=== PATIENT | male | born 1960 | race Caucasian/White ===

== ENCOUNTER → 2019-05-29 07:58 | Outpatient (BNVA) | payer OTHER, SELFPAY | PROVIDERS: Family Provider Family Medicine; PCP Family Medicine; Visit Provider Anesthesiology | DX: M54.9 Dorsalgia, unspecified (principal); Z79.891 Long term (current) use of opiate analgesic | CPT/HCPCS: 99213; 99214 ==

== ENCOUNTER → 2019-07-24 08:32 | Outpatient (BNVA) | payer OTHER, SELFPAY | PROVIDERS: Family Provider Family Medicine; PCP Family Medicine; Visit Provider Anesthesiology | DX: M54.41 Lumbago with sciatica, right side (principal); M54.42 Lumbago with sciatica, left side; M47.26 Other spondylosis with radiculopathy, lumbar region; M48.061 Spinal stenosis, lumbar region without neurogenic claudication; S32.000A Wedge compression fracture of unspecified lumbar vertebra, initial encounter for closed fracture; X58.XXXA Exposure to other specified factors, initial encounter; M19.90 Unspecified osteoarthritis, unspecified site; Z79.891 Long term (current) use of opiate analgesic | CPT/HCPCS: 99214 ==

== ENCOUNTER → 2019-12-11 08:25 | Outpatient (BNVA) | payer OTHER, SELFPAY | PROVIDERS: Family Provider Family Medicine; PCP Family Medicine; Visit Provider Anesthesiology | DX: M54.42 Lumbago with sciatica, left side (principal); M54.41 Lumbago with sciatica, right side; M48.061 Spinal stenosis, lumbar region without neurogenic claudication; M47.26 Other spondylosis with radiculopathy, lumbar region; S32.000A Wedge compression fracture of unspecified lumbar vertebra, initial encounter for closed fracture; X58.XXXA Exposure to other specified factors, initial encounter; M19.90 Unspecified osteoarthritis, unspecified site; Z79.891 Long term (current) use of opiate analgesic | CPT/HCPCS: 99214 ==

== ENCOUNTER → 2020-02-08 14:39 | Outpatient (BNVA) | payer OTHER, SELFPAY | PROVIDERS: Family Provider Family Medicine; PCP Family Medicine; Referring Provider Internal Medicine; Visit Provider Podiatrist Foot & Ankle Surgery | DX: M79.672 Pain in left foot (principal); M20.42 Other hammer toe(s) (acquired), left foot | CPT/HCPCS: 73630 ==

== ENCOUNTER → 2020-02-11 09:14 | Outpatient (BNVA) | payer OTHER, SELFPAY | PROVIDERS: Family Provider Family Medicine; PCP Family Medicine; Visit Provider Anesthesiology | DX: M48.061 Spinal stenosis, lumbar region without neurogenic claudication (principal); M54.42 Lumbago with sciatica, left side; M54.41 Lumbago with sciatica, right side; M47.26 Other spondylosis with radiculopathy, lumbar region; S32.000A Wedge compression fracture of unspecified lumbar vertebra, initial encounter for closed fracture; X58.XXXA Exposure to other specified factors, initial encounter; Z79.891 Long term (current) use of opiate analgesic | CPT/HCPCS: 99212; 99214 ==

== ENCOUNTER → 2020-03-11 09:55 | Outpatient (BNVA) | payer OTHER, SELFPAY | PROVIDERS: Family Provider Family Medicine; PCP Family Medicine; Visit Provider Anesthesiology | DX: M54.42 Lumbago with sciatica, left side (principal); M54.41 Lumbago with sciatica, right side; M48.061 Spinal stenosis, lumbar region without neurogenic claudication; M47.26 Other spondylosis with radiculopathy, lumbar region; S32.000A Wedge compression fracture of unspecified lumbar vertebra, initial encounter for closed fracture; X58.XXXA Exposure to other specified factors, initial encounter; Z79.891 Long term (current) use of opiate analgesic | CPT/HCPCS: 99212; 99214 ==

== ENCOUNTER → 2020-04-04 16:35 | Outpatient (BNVA) | payer OTHER, SELFPAY | PROVIDERS: PCP Family Medicine; Visit Provider Podiatrist Foot & Ankle Surgery | DX: Z01.818 Encounter for other preprocedural examination (principal); Z11.59 Encounter for screening for other viral diseases | CPT/HCPCS: 87635 ==

== ENCOUNTER 2020-04-08 05:39 | Day surgery (SDC) | payer OTHER, SELFPAY ==
[2020-04-07 07:43] VITALS: BMI 28.1
[2020-04-08 06:06] VITALS: BP 139/103; PULSE 71; RESP 16; TEMP 37.1; O2SAT 96
[2020-04-08] MEDS: sodium chloride 0.9% 1,000 ML 30 ML IV (06:13)
--- NOTE | 2020-04-08 06:40 | PM.OPSURHP ---
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 He is here for surgical consultation. Review of Systems General: Reports: 10 or more systems reviewed and unremarkable except in HPI and below Const: Denies: fever(s) or chills Eyes: Denies: change in vision Card: Denies: chest pain or palpitations Resp: Denies: dyspnea or productive cough GI: Denies: abdominal pain, nausea or vomiting : Denies: flank pain Musc: Reports: extremity pain, joint pain, joint stiffness, limited range of motion and deformity Skin/Breast: Reports: skin tenderness; Denies: rash Neuro: Reports: difficulty walking; Denies: numbness in extremities, sensory changes or frequent falls Psych: Denies: suicidal ideation Manuel/Lymph: Denies: easy bruising Medications/Allergies Home Medications Medication Instructions Recorded Confirmed Last Taken Type amlodipine 10 mg tablet 10 mg PO QDAY 05/29/19 04/08/20 04/07/20 History amlodipine 5 mg tablet 5 mg PO QDAY 05/29/19 04/08/20 04/08/20 History cinnamon bark 500 mg capsule 500 mg PO QDAY 05/29/19 04/08/20 04/07/20 History fluticasone propionate 50 2 spray INTRANASAL QDAY 05/29/19 04/08/20 04/07/20 History mcg/actuation nasal spray,suspension garlic 1 mg capsule 1 mg PO QDAY 05/29/19 04/08/20 04/07/20 History ibuprofen 800 mg tablet 800 mg PO Q6H 05/29/19 04/08/20 04/07/20 History vthbztcz-bsa-lzquo acid 300 1 tab PO QDAY 05/29/19 04/08/20 04/07/20 History mcg-lycopene 600 mcg-lutein 300 mcg tablet tamsulosin 0.4 mg capsule 0.4 mg PO QDAY 05/29/19 04/08/20 04/07/20 History cyclobenzaprine 10 mg tablet 10 mg PO TID 07/24/19 04/07/20 Unknown History pregabalin 50 mg capsule 50 mg PO TID 30 Days #90 cap 07/24/19 04/08/20 04/07/20 Rx oxycodone-acetaminophen 5 mg-325 1 tab PO TID PRN 30 Days #90 tab 03/11/20 04/08/20 04/07/20 Rx mg tablet Allergies Allergy/AdvReac Type Severity Reaction Status Date / Time chemicals Allergy ADR/ALGY-Fl [facility]11[facility]20 [facility]: Medical History (Updated 04/08/20 @ 06:41 by Jake Amaro DPM) Bilateral low back pain with bilateral sciatica Chronic osteoarthritis Closed compression fracture of lumbosacral spine Encounter for long-term opiate analgesic use Other spondylosis with radiculopathy, lumbar region Spinal stenosis, lumbar region without neurogenic claudication Surgical History History of arthroplasty of left ankle Family History Sister Cancer Grandmother Diabetes Father CAD (coronary artery disease) Brother CAD (coronary artery disease) Social History Smoking and tobacco status: former smoker Alcohol intake: never History of recent travel: No Dietary Habits: Caffeine: Yes Caffeine intake frequency: carbonated beverages and tea Vital Signs Vitals Signs: Last Vital Signs Temp 98.7 F 04/08/20 06:06 Pulse 71 04/08/20 06:06 Resp 16 04/08/20 06:06 BP 139/103 04/08/20 06:06 Pulse Ox 96 04/08/20 06:06 Weight: Weight last 48 hrs Weight 180 lb Physical Exam Narrative: EXAM NARRATIVE: GENERAL: Patient is alert and oriented ?3 and in no acute distress. The following is a focused bilateral lower extremity exam. VASCULAR: Dorsalis pedis and posterior tibial arteries palpable +2. Capillary refill time less than 3 seconds to the distal hallux bilaterally. Calf is supple and nontender proximally and distally. No pedal edema appreciated. Pedal hair growth present. NEUROLOGICAL: Epicritic and protopathic sensations grossly intact to the lower extremities. +2 Achilles tendon reflex noted bilaterally. Negative Tinel sign upon percussion of lower extremity nerves. DERMATOLOGICAL: Hyperkeratotic lesion at the dorsal aspect of the left third toe at the PIPJ. MUSCULOSKELETAL: Point tenderness at the left third toe at the proximal interphalangeal joint. Patient has a nonreducible rigid hammertoe deformity of the left third toe with sagittal plane dominance. Reducible hammertoe of the fourth and fifth left foot these are nonpainful. Muscle strength 5 out of 5 in all 3 cardinal planes to the bilateral foot and ankle. Resp: COMMON NORMALS: normal respiratory effort, No retractions, No use of accessory muscles and clear to auscultation bilaterally EFFORT & INSPECTION: Yes able to speak in complete sentences AUSCULTATION: clear to auscultation bilaterally Cardio: COMMON NORMALS: regular rate, regular rhythm and Peripheral pulses 2+ throughout RATE: regular rate RHYTHM: regular rhythm PERIPHERAL PULSES: Peripheral pulses 2+ throughout A&P Assessment and plan (1) Left foot pain: Status: Acute (2) Hammertoe of left foot: Status: Acute Patient examined and evaluated, findings and treatment options discussed with patient at length. Reviewed x-ray findings negative for acute fracture dislocation. He does have hammertoe deformities of the left foot toes 3, 4 and 5. [place] sign appreciated at the third toe, left. Patient has exhausted conservative treatments consisting of supportive shoes with high toe box. Gel and foam pads at the hammertoe deformity as well as Band-Aids. States that his hammertoe continues to rub and cause pain and he would like to discuss treatment options. I discussed hammertoe correction with arthrodesis and implant at the proximal interphalangeal joint left third toe with possible tendon transfer. Risks include pain, bleeding, numbness, infection, implant failure, failure to correct deformity, overcorrection of deformity, flail toe, damage to adjacent soft tissue structures, swelling, bruising, painful scar. Need for further surgical intervention. Patient is agreeable wishes to proceed. Patient scheduled for surgery outpatient 04/08/2020 will follow-up 1 week postoperatively for nursing visit and dressing change. Planning on PIPJ arthrodesis with implant and TenoTac left third toe. Left third hammertoe correction, MAC anesthesia duration of procedure 30 minutes. Coding Level of Care Code Acute Lost Charge Card Clerk for [facility] Diagnoses Left foot pain M79.672 Hammertoe of left foot M20.42
--- NOTE | 2020-04-08 06:42 | P.HPUD_ITS ---
Surgery/Procedure H&P Update DATE OF PROCEDURE: April 08, 2020 DATE H&P PERFORMED: 04/08/20 H&P UPDATE INFORMATION: I have reviewed H&P completed within last 30 days, I have examined patient prior to procedure, No changes to prior documentation and H&P is in [facility] EMR on date indicated PREOP DIAGNOSIS: Left third hammertoe PLANNED PROCEDURE: Operation Date: 04/08/20 07:00 Proposed Procedures p Left third Hammertoe Correction 31511 M20.42(Left) - Jake Amaro DPM
--- NOTE | 2020-04-08 06:43 | P.OP_ITS ---
Operative Report Date of procedure: April 08, 2020 Pre-op Diagnosis: Left third hammertoe Post-op diagnosis: same Procedure Done: Left third Hammertoe Correction [id number] Implants: [place] 28 Hemmert tube, 4-0 Vicryl, 4-0 nylon Pathology: none sent Surgeon: Jake briseno D.P.M. Manager Philosophy: Sandhya Anesthesia: MAC Estimated blood loss: Less than 5 mL Tourniquet time: see intraoperative documentation IV fluids: None Urine output: None Complications: None Findings: Arthrosis at the third hammertoe deformity at the level of the PIPJ sagittal plane dominance. 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 Patient initially requested amputation of the toe states that he does not want it anym ore due to it being the main source of pain. I advised a hammertoe correction and straightening of the toe is a viable option and he wishes to proceed. Risks include pain, bleeding, numbness, infection, failure to correct deformity, overcorrection of deformity, failed implant, swelling, bruising, need for further surgical intervention. Patient is agreeable and wishes to proceed. Informed consent signed, initialed patient's left foot preoperatively and answered all questions to patient's satisfaction. No guarantees written, expressed or implied. Procedure: Under mild sedation the patient was brought to the operating room and placed on the operating table in supine position. A timeout was performed. Anesthesia was then administered by the anesthesia service. Local anesthesia was injected by myself consisting of 20 cc of 0.5% Marcaine plain and a left third ray block fashion. Well-padded pneumatic tourniquet applied to the left ankle. Left lower extremity was then scrubbed, prepped and draped utilizing normal aseptic technique. Left foot was examined a weighted with an Esmarch bandage and a tourniquet was inflated to 250 mmHg. Attention was directed to the dorsum of the left third toe where 2 semielliptical converging incisions were carried out with a #15 blade full- thickness with skin island excised and passed from the operative field. Transverse tenotomy and capsulotomy performed at the left proximal interphalangeal joint the head of the proximal phalanx and base of the intermediate phalanx were freed from their soft tissue and capsular attachments and resected down to healthy bleeding bone. Next utilizing monument stonecutter recommendation a hammer tube per [place] 28 was inserted approximately and distally with compression at the arthrodesis site at the proximal interphalangeal joint of the left second toe noted to be excellent and in great apposition and in a rectus position this was confirmed with intraoperative fluoroscopy. Incision was irrigated with copious amounts of sterile saline solution. Extensor tendon was reapproximated utilizing 4-0 Vicryl and skin reapproximated utilizing 4-0 nylon. Incision was dressed with Adaptic, sterile 4 x 4, Kerlix and Christiano wrap. Postop shoe was applied. Tourniquet was deflated and a prompt hyperemic response was noted to the distal digits of the left foot. Patient tolerated the procedure well and was transferred to the PACU with vital signs stable and vascular status intact. Following a period of postoperative monitoring he will be discharged home.
--- NOTE | 2020-04-08 06:49 | ANES.PREANE2 ---
Pre-Anesthetic Assessment Pre-Anesthetic Assessment: Height/Weight: Height 1.7 m Weight 81.647 kg Temp Pulse Resp BP Pulse Ox 98.7 F 71 16 139/103 96 04/08/20 06:06 04/08/20 06:06 04/08/20 06:06 04/08/20 06:06 04/08/20 06:06 Preop Diagnosis: Left third hammertoe Proposed Procedure: Operation Date: 04/08/20 07:00 Proposed Procedures p Left third Hammertoe Correction 67142 M20.42(Left) - Jake Amaro DPM Was Beta Tom taken within 24 hours: N/A Last intake: Intake Last Liquid Date 04/08/20 Last Liquid Time 00:00 Last Solid Date 04/07/20 Last Solid Time 19:00 Social: Social History: Tobacco and No alcohol Exam: Pre-Anes Outpt Exam: alert, oriented x 3 and regular rate & rhythm Additional Exam Findings (including area of procedure): BBS decreased, rhonchi Airway: Submandibular: WNL Cervical ROM: WNL MP: 2 Dentition: False Additional comments: Gonzalez Pulmonary: Pulmonary: COPD CV/HEM: CV/HEM: HTN : : None reported Hepatic: Hepatic: None reported GI: GI: None reported Musc/skel: Musc/skel: Lower Back Pain Comments: Chronic pain/opioid Neuropsych: Neuropsych: None reported Anesthetic Plan: ASA status: 3 Anesthesia: MAC Risk of > 500 ml blood loss (7ml/kg in children): No Meds/Allergies Current Medications: Current Medications Generic Name Dose Route Start Last Admin Trade Name Freq PRN Reason Stop Dose Admin Sodium Chloride 1,000 mls @ 30 ml s/hr 04/08/20 06:00 04/08/20 06:13 Sodium Chloride 0.9% IV 04/09/20 05:59 30 mls/hr .Q24H RAVIN Administration PFSH Anesthesia PFSH: Medical History (Updated 04/08/20 @ 06:41 by Jake Amaro DPM) Bilateral low back pain with bilateral sciatica Chronic osteoarthritis Closed compression fracture of lumbosacral spine Encounter for long-term opiate analgesic use Other spondylosis with radiculopathy, lumbar region Spinal stenosis, lumbar region without neurogenic claudication Surgical History History of arthroplasty of left ankle Family History Sister Cancer Grandmother Diabetes Father CAD (coronary artery disease) Brother CAD (coronary artery disease) Social History Smoking and tobacco status: former smoker Alcohol intake: never History of recent travel: No Data Anesthesia Cardiac Studies: No Data to Display
--- NOTE | 2020-04-08 07:44 | XR_ITS ---
WS: [id number] Left foot, 3 views, 04/08/2020 Clinical Data: post op Comparison: Left foot, 02/08/2020. Findings: No fractures or dislocations are seen. No bone destruction or erosion is noted. The patient has had a small artificial joint inserted into the left third toe PIP joint. There are sutures at the medial a spect of the foot at the level of the medial malleolus unchanged. XR/XR foot LT min 3V* [id number] Impression: Small artificial joint left third toe PIP joint
--- NOTE | 2020-04-08 07:45 | P.OP_ITS ---
Operative Report Date of procedure: April 08, 2020 Pre-op Diagnosis: Left third hammertoe Post-op Findings: None Procedure Done: Left third hammertoe correction with implant CPT code 82741 Implants: [place] 28 hammer tube 2.7 mm, 4-0 Vicryl, 4-0 nylon Specimens removed/disposition: None Pathology: none sent Surgeon: Jake Amaro D.P.M. Tool And Die Maker/Designer: Camilla Anesthesia: MAC Estimated blood loss: Less than 5 mL Tourniquet time: 23 minutes IV fluids: None Urine output: None Complications: None Findings: None Condition: stable Disposition: PACU Brief History: Mr. Jannet Gomes is a pleasant 59-year-old male who has had persistent pain at his left third toe. He does have multiple hammertoe deformities however his left third toe is most painful he is unable to get relief utilizing spacers and extra padding as well as accommodative shoes. This affects his ability to care everyday activities as he is increased pain with increased activity. States that he would like to be able to shoot his toe off most days with a gun. He is requesting amputation of the toe due to pain versus straightening the toe. I advised hammertoe correction with implant to perform corrective straightening he is agreeable to this. Risks include pain, bleeding, numbness, infection, failure to correct deformity, overcorrection of deformity, painful scar, painful implant, damage to adjacent soft tissue structures, need for further surgical intervention. Patient is agreeable wishes to proceed. He was met with preoperatively informed consent signed answered all questions and marked with initials left foot no guarantees written, expressed or implied. Procedure: Under mild sedation the patient was brought to the operating room and placed on the operating table in supine position. A timeout was performed. Anesthesia was administered by the anesthesia service. Well-padded pneumatic tourniquet applied to the left ankle. Local anesthesia was injected by myself consisting of 20 cc of 0.5% Marcaine plain and a left third ray block fashion. Left lower extremity was then scrubbed, prepped and draped utilizing normal aseptic technique. Left foot was examined a weighted with an Esmarch bandage and the tourniquet was inflated to 250 mmHg. Attention was then directed to the dorsum of the left third toe where a nonreducible hammertoe deformity with sagittal plane dominance was appreciated had a hyperkeratosis at the dorsum of the proximal interphalangeal joint. Utilizing 2 semielliptical incisions skin bridge was excised and passed from operative field. Transverse capsulotomy and tenotomy performed of the extensor tendons at the level of the proximal interphalangeal joint. Head of the proximal phalanx and base of the intermediate phalanx denuded of articular surface followed by arthroplasty/fusion of the proximal interphalangeal joint of the third digit with excellent bony apposition and bony contact utilizing a [place] 28 hammer tube this was a 0 degree tube 2.7 mm. Excellent bony apposition and compression noted. Incision site was irrigated with saline solution. Position confirmed with intraoperative fluoroscopy noted to be improved. Extensor tendon repaired utilizing 4-0 Vicryl and skin closed with 4-0 nylon. Subcutaneous infiltration of Exparel total of 10 mL performed per environmental sampler recommendation on technique. Incision was dressed with Adaptic, sterile 4 x 4, Kerlix and Christiano followed by postop shoe. Tourniquet was deflated and a prompt hyperemic response was noted to the distal digits of the left foot. Patient tolerated the procedure well and was transferred to the PACU with vital signs stable and vascular status intact. Following a period of postoperative monitoring he will be discharged home he is to have limited weightbearing is to elevate his left foot above the hip at all times while at rest. Keep his postoperative dressing clean, dry and intact until follow-up visit scheduled 04/15/2020 at 8 AM. He was provided my cell phone numbers to contact me with any postoperative questions or concerns. Patient is currently under the care of pain management Dr. Dominick Hoover he is being provided Percocet 5/325 mg 3 times daily and typically gets a 30-day supply. I am recommending holding his current regimen for pain management and an increase provided by myself of Percocet 7.5/325 mg to be taken every 6 for the next 14 days at which time he will return back to his baseline of pain management regimen previously prescribed. I informed the patient to contact pain management and inform them of his surgery today and need for additional postoperative pain management.
[2020-04-08 07:47] VITALS: BP 120/80; PULSE 73; RESP 16; TEMP 36.4; O2SAT 95
[2020-04-08 08:02] VITALS: BP 118/74; PULSE 66; RESP 16; TEMP 36.6; O2SAT 96
--- NOTE | 2020-04-08 08:07 | ANE.PACU2 ---
Inpatient post-anesthesia follow up: Airway intact: Yes Vital signs: Temperature 98 F Pulse Rate 66 Respiratory Rate 16 Blood Pressure 118/74 Pulse Oximetry 96 Oxygen Delivery Me thod Room Air Oxygen Flow Rate Fraction of Inspir ed Oxygen Hydration adequate: Yes Nausea and vomiting: No Pain level: 1 Mental status: Baseline
== END 2020-04-08 08:30 | disposition home or self-care (01) ==
PROVIDERS: PCP Family Medicine; Visit Provider Podiatrist Foot & Ankle Surgery
PROC: (CPT 28285; principal; 2020-04-08 07:00)
DX: M20.42 Other hammer toe(s) (acquired), left foot (principal); J44.9 Chronic obstructive pulmonary disease, unspecified; I10 Essential (primary) hypertension; M19.90 Unspecified osteoarthritis, unspecified site; Z87.891 Personal history of nicotine dependence; Z82.49 Family history of ischemic heart disease and other diseases of the circulatory system
CPT/HCPCS: 28285; 12345; 73630; 76000; C1713; C9290; J0690; J2250; J2704; J3010; J3490; J7030

== ENCOUNTER → 2020-04-21 14:58 | Outpatient (BNVA) | payer OTHER, SELFPAY | PROVIDERS: PCP Internal Medicine; Visit Provider Podiatrist Foot & Ankle Surgery | DX: Z98.890 Other specified postprocedural states (principal) | CPT/HCPCS: 73630 ==

== ENCOUNTER → 2020-05-10 14:41 | Outpatient (BNVA) | payer OTHER, SELFPAY | PROVIDERS: PCP Internal Medicine; Visit Provider Anesthesiology | DX: M48.061 Spinal stenosis, lumbar region without neurogenic claudication (principal); M47.26 Other spondylosis with radiculopathy, lumbar region; M54.42 Lumbago with sciatica, left side; M54.41 Lumbago with sciatica, right side; Z79.891 Long term (current) use of opiate analgesic | CPT/HCPCS: 99213 ==

== ENCOUNTER 2020-05-10 16:52 | Outpatient (CLI) | payer OTHER, SELFPAY ==
--- NOTE | 2020-05-10 17:06 | XR_ITS ---
WS: [id number] Left foot, 3 views, 05/10/2020 Clinical Data: hammertoe Comparison: Left foot, 04/21/2020. Findings: The correction of the hammertoe deformity of the left third DIP joint remains unchanged.There are sut ures adjacent to the medial malleolus. XR/XR foot LT min 3V* [id number] Impression: Correction of left third toe DIP joint deformity.
== END 2020-05-10 16:53 | disposition home or self-care (01) ==
PROVIDERS: PCP Internal Medicine; Visit Provider Podiatrist Foot & Ankle Surgery
DX: M20.42 Other hammer toe(s) (acquired), left foot (principal); M79.672 Pain in left foot
CPT/HCPCS: 73630

== ENCOUNTER → 2020-07-08 08:31 | Outpatient (BNVA) | payer OTHER, SELFPAY | PROVIDERS: PCP Internal Medicine; Visit Provider Anesthesiology | DX: M48.061 Spinal stenosis, lumbar region without neurogenic claudication (principal); M54.42 Lumbago with sciatica, left side; M54.41 Lumbago with sciatica, right side; M47.26 Other spondylosis with radiculopathy, lumbar region; Z79.891 Long term (current) use of opiate analgesic | CPT/HCPCS: 99213 ==

== ENCOUNTER → 2020-09-02 07:54 | Outpatient (BNVA) | payer OTHER, SELFPAY | PROVIDERS: PCP Internal Medicine; Visit Provider Anesthesiology | DX: M54.42 Lumbago with sciatica, left side (principal); M54.41 Lumbago with sciatica, right side; M48.061 Spinal stenosis, lumbar region without neurogenic claudication; M47.26 Other spondylosis with radiculopathy, lumbar region; S32.000A Wedge compression fracture of unspecified lumbar vertebra, initial encounter for closed fracture; X58.XXXA Exposure to other specified factors, initial encounter; Z79.891 Long term (current) use of opiate analgesic | CPT/HCPCS: 99213 ==

== ENCOUNTER → 2020-11-04 07:57 | Outpatient (BNVA) | payer OTHER, SELFPAY | PROVIDERS: PCP Internal Medicine; Visit Provider Anesthesiology | DX: M48.061 Spinal stenosis, lumbar region without neurogenic claudication (principal); M47.26 Other spondylosis with radiculopathy, lumbar region; M54.42 Lumbago with sciatica, left side; M54.41 Lumbago with sciatica, right side; Z79.891 Long term (current) use of opiate analgesic; Z87.891 Personal history of nicotine dependence | CPT/HCPCS: 99213 ==

== ENCOUNTER → 2020-12-30 08:29 | Outpatient (BNVA) | payer OTHER, SELFPAY | PROVIDERS: PCP Internal Medicine; Visit Provider Anesthesiology | DX: M54.42 Lumbago with sciatica, left side (principal); M54.41 Lumbago with sciatica, right side; M48.061 Spinal stenosis, lumbar region without neurogenic claudication; M47.26 Other spondylosis with radiculopathy, lumbar region; Z79.891 Long term (current) use of opiate analgesic | CPT/HCPCS: 99213 ==

== ENCOUNTER → 2021-03-03 07:49 | Outpatient (BNVA) | payer OTHER, SELFPAY | PROVIDERS: PCP Internal Medicine; Visit Provider Anesthesiology | DX: M48.061 Spinal stenosis, lumbar region without neurogenic claudication (principal); M47.26 Other spondylosis with radiculopathy, lumbar region; M54.42 Lumbago with sciatica, left side; M54.41 Lumbago with sciatica, right side; S32.000A Wedge compression fracture of unspecified lumbar vertebra, initial encounter for closed fracture; X58.XXXA Exposure to other specified factors, initial encounter; Z79.891 Long term (current) use of opiate analgesic | CPT/HCPCS: 99213 ==

== ENCOUNTER → 2021-03-21 09:35 | Outpatient (BNVA) | payer OTHER, SELFPAY | PROVIDERS: PCP Internal Medicine; Referring Provider Anesthesiology; Visit Provider Orthopaedic Surgery | DX: M54.42 Lumbago with sciatica, left side (principal); M54.41 Lumbago with sciatica, right side; M47.899 Other spondylosis, site unspecified | CPT/HCPCS: 72110 ==

== ENCOUNTER 2021-04-26 15:00 | Outpatient (CLI) | payer OTHER, SELFPAY ==
--- NOTE | 2021-04-26 15:15 | MR_ITS ---
WS: [id number] MRI LUMBAR SPINE NONCONTRAST HISTORY: M47.26 - Other spondylosis with radiculopathy, chronic low back pain, RIGHT hip and groin pa in. COMPARISON: Radiographs 03/21/2021 TECHNIQUE: Sagittal and axial multisequence imaging is submitted. On the sagittal survey of the entire spine a 50% compression fracture is noted at T4 and 10% compress ion fracture at T5. Straightening and LEFT curvature of the lumbar spine. Compression fracture by 20% at L2. There is a s mall amount of reactive edema along the adjacent endplates of L2 and L3. L2 retrolisthesis by 8 mm. L 5 anterolisthesis by 7.6 mm. The S1 vertebral body is partially lumbarized and there is also mild ant erior wedging of the S1 vertebral body. Mild disc space narrowing and desiccation throughout the lumbar spine. Conus terminates normally at L1-2 disc level. L1-L2: Mild diffuse disc bulging. Small disc osteophyte complex in the LEFT neural foramen. Does not appear to be contacting or displacing the nerve roots. L2-L3: Retrolisthesis of L2 causing mild deformity and effacement of the ventral CSF. There is mild a nnular disc bulging and osteophytic ridging. Very minimal ligamentum flavum hypertrophy and facet lyndsey nt arthritis. The retrolisthesis and facet joint arthritis encroaches into the subarticular recesses bilaterally with contact on the traversing L3 nerve roots. Moderate bilateral subarticular recess fahad nosis and mild foraminal stenosis. More significant stenosis and encroachment extending into the RIGH T subarticular recess and foramen by osteophyte and disc protrusion. L3-L4: Mild annular disc bulging and osteophytic ridging. Small amount of fluid in the facet joints a nd ligamentum flavum hypertrophy. There is mild narrowing of the subarticular recesses and foramen. M ild encroachment upon the L3 and L4 nerve roots bilaterally. L4-L5: Mild annular disc bulging and ligamentum flavum and facet arthritis. Mild bilateral foraminal encroachment. L5-S1: Anterolisthesis of L5 with unroofing of the disc with mild ligamentum flavum and moderate face t joint arthritis. Facet osteophytes encroach towards the subarticular recesses. There is mild encroa chment upon the ventral thecal sac and S1 nerve roots. Mild central and bilateral subarticular recess encroachment. Very slight contact on the exiting nerve roots, LEFT greater than RIGHT. Paravertebral soft tissues are negative. MR/MR lumbar spine wo con* [id number] IMPRESSION: 1. Remote L2 compression fracture, 20%. 2. Retrolisthesis of L2 by 8 mm and anterolisthesis of L5 by 7.6 mm. 3. No acute lumbar spine fractures. 4. Small disc osteophyte contacts LEFT neural foramen of L1-2 without nerve ro ot contact. 5. Moderate bilateral subarticular recess stenosis at L2-3 with disc and osteo phyte and facet arthritis contacting the traversing L3 nerve roots. Mild bilate ral foraminal stenosis. More significant encroachment upon the RIGHT L2 and L3 nerve roots due to osteophytes and RIGHT foraminal disc protrusion. 6. Mild subarticular recess and foraminal stenosis at L3-4 with mild encroachm ent upon the nerve roots. 7. Mild bilateral foraminal stenosis at L4-5. 8. Facet joint arthritis encroaching into the subarticular recesses resulting in mild central and bilateral subarticular recess encroachment at L5-S1 with co ntact on the L5 and S1 nerve roots. 9. Remote T4 and T5 compression fractures.
== END 2021-04-26 15:01 | disposition home or self-care (01) ==
LOC: RADSHAW 15:09
PROVIDERS: PCP Internal Medicine; Visit Provider Orthopaedic Surgery
DX: M47.26 Other spondylosis with radiculopathy, lumbar region (principal); M48.061 Spinal stenosis, lumbar region without neurogenic claudication; S32.029A Unspecified fracture of second lumbar vertebra, initial encounter for closed fracture; M25.78 Osteophyte, vertebrae; S22.049A Unspecified fracture of fourth thoracic vertebra, initial encounter for closed fracture; S22.059A Unspecified fracture of T5-T6 vertebra, initial encounter for closed fracture; X58.XXXA Exposure to other specified factors, initial encounter
CPT/HCPCS: 72148

== ENCOUNTER 2022-01-15 13:45 | Inpatient (IN) | payer OTHER, SELFPAY ==
[2022-01-11 08:51] VITALS: BMI 29.0
--- NOTE | 2022-01-11 09:05 | P.ANESASSM_ITS ---
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 After further discussion of risk of declining blood, patient states he will accept blood products if deemed medically necessary. Medications/Allergies Home Medications Medication Instructions Recorded Confirmed Last Taken Type amlodipine 5 mg tablet 5 mg PO QDAY 05/29/19 01/11/22 04/08/20 History cinnamon bark 500 mg capsule 500 mg PO QDAY 05/29/19 01/11/22 04/07/20 History fluticasone propionate 50 2 spray intranasal QDAY 05/29/19 01/11/22 04/07/20 History mcg/actuation nasal spray,suspension ibuprofen 800 mg tablet 800 mg PO Q6H 05/29/19 01/11/22 04/07/20 History srghkiql-bxc-ffnkh acid 300 1 tab PO QDAY 05/29/19 01/11/22 04/07/20 History mcg-lycopene 600 mcg-lutein 300 mcg tablet (Centrum Silver Ultra Men's) cyclobenzaprine 10 mg tablet 10 mg PO TID 07/24/19 01/11/22 Unknown History oxycodone-acetaminophen 10 mg-325 1 tab PO QID PRN pain 30 days #120 06/16/21 01/11/22 Unknown Rx mg tablet tabs Barley Green 1 tbsp PO DAILY 01/11/22 01/11/22 Unknown History Relief Factor 4 tab PO DAILY 01/11/22 01/11/22 Unknown History Allergies Allergy/AdvReac Type Severity Reaction Status Date / Time chemicals Allergy ADR/ALGY-Fl Uncoded 09/19/21 09:26 [facility] Anesthesia Medical History (Updated 01/11/22 @ 08:25 by Jenna Cortez) Bilateral low back pain with bilateral sciatica Chronic osteoarthritis Closed compression fracture of lumbosacral spine Encounter for long-term opiate analgesic use Other spondylosis with radiculopathy, lumbar region Spinal stenosis, lumbar region without neurogenic claudication Surgical History (Updated 01/11/22 @ 08:52 by Jenna Cortez) History of arthroplasty of left ankle Family History Sister Cancer Grandmother Diabetes Father CAD (coronary artery disease) Brother CAD (coronary artery disease) Social History Smoking and tobacco status: former smoker Second hand smoke exposure: No Alcohol intake: never History of recent travel: No Data Anesthesia Cardiac Studies: No Data to Display
[2022-01-15] VITALS (25 sets, daily range): BP systolic 88–157; BP diastolic 53–102; PULSE 18–96; RESP 12–75; TEMP 36.2–36.8; O2SAT 92–98; BMI 29.0
--- NOTE | 2022-01-15 | XR_ITS ---
WS: [id number] XR lumbar spine 2-3V* [id number] REASON FOR EXAM: L4 to pelvis instrumented fusion FINDINGS: Pedicle screw placement bilaterally L3-S1. Oblique sacral screws S2. Interbody fusion device at L5-S1. Surgical appliances are in proper position and alignment. XR/XR lumbar spine 2-3V* [id number] IMPRESSION: Postoperative lumbar spine as above.
--- NOTE | 2022-01-15 | SCC_ITS ---
Procedure done: 1. L5/S1 Interbody fusion with posterolateral fusion 2. Instrumentation L3-S1 3. Lumbopelvic instrumentation 4. Cage at L5/S1 5. L4/5 Laminectomy with partial facetectomies 6. L5/S1 Laminectomy with partial facetectomies 7. use of autograft from same incision 8. allograft 9. Bone marrow aspirate from right iliac crest 10. Use of computer navigation /stereotactic for spine 8 seconds of fluoroscopic guidance, for a cumulative dose of 23.7 mGy, was provided to Dr. oDan by the radiology department. C-arm images of the lumbar spine were saved for the patient's permanent record. [facility]
[2022-01-15] MEDS: sodium chloride 0.9% 1,000 ML 30 ML IV (06:16)
--- NOTE | 2022-01-15 06:17 | P.ANESUD_ITS ---
Pre-Anesthetic Update Pre-Anesthetic Assessment: Date of Surgery/Procedure: 01/15/22 Preop Gracie gnosis: Spondylolisthesis L4-5, degenerative disc disease lumbar spine Proposed Procedure: Operation Date: 01/15/22 07:00 Proposed Procedures p PLIF L4/5 L5/S1 [id number]/M43.16(Not Applicable) - Olu Doan, DO Any changes to Pre-Anesthetic Assessment?: No Changes from Pre-Anesthetic Assessment: No Last Intake: Intake Last Liquid Date 01/14/22 Last Liquid Time 00:00 Last Solid Date 01/14/22 Last Solid Time 19:00 Vitals: Temperature 98.2 F 01/15/22 06:05 Temperature Source Temporal Artery S can 01/15/22 06:05 Pulse Rate 73 01/15/22 06:05 Respiratory Rate 18 01/15/22 06:05 Blood Pressure 157/102 01/15/22 06:05 Blood Pressure Shannen n 120 01/15/22 06:05 Pulse Oximetry 94 01/15/22 06:05 Oxygen Delivery Me thod 01/15/22 06:05 Exam: Pre-Anes Outpt Exam: alert, oriented x 3, clear to auscultation bilaterally and regular rate & rhythm Additional Exam Findings (including area of procedure): Discussed blood products with patient. Patient again states he prefers not to have blood products, but will accept if clinically necessary. Type and screen sent. Cardiac Studies: No Data to Display
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
[2022-01-15] MEDS: clindamycin 900 MG/50 ML PREMIX 100 MG IV (07:04)
[2022-01-15] MEDS: heparin, porcine 1,000 unit/mL INJ 10 mL 10000 UNIT IRRIGATION (08:08)
[2022-01-15] MEDS: vancomycin 1,000 MG SDV 1000 MG XX (08:08)
--- NOTE | 2022-01-15 08:16 | SUR.OPER ---
Family Notified Of Patient's Status Via Phone.
--- NOTE | 2022-01-15 11:18 | SUR.PHASEI ---
1100 Bilat SCDs on pump and working. 1120 Arterial line removed per protocol. Pressure held for 15 minutes and pressure dressing applied.
--- NOTE | 2022-01-15 11:29 | P.OP_ITS ---
Operative Report Date of procedure: January 15, 2022 Pre-op diagnosis: Preop Diagnosis Spondylolisthesis L4-5, degenerative disc disease lumbar spine Post-op diagnosis: same Procedure done: 1. L5/S1 Interbody fusion with posterolateral fusion 2. Instrumentation L3-S1 3. Lumbopelvic instrumentation 4. Cage at L5/S1 5. L4/5 Laminectomy with partial facetectomies 6. L5/S1 Laminectomy with partial facetectomies 7. use of autograft from same incision 8. allograft 9. Bone marrow aspirate from right iliac crest 10. Use of computer navigation /stereotactic for spine Surgeon: Olu Doan Customer Experience Intern: Bud Garcia Customer Experience Intern: The surgical supplies sterilizer, Bud Garcia, PAC was needed for his expertise under the microscope. He was important and necessary throughout the procedure to complete in a safe and timely manner. He assisted with patient positioning prepping and draping tissue retraction suctioning of the operative field protection of the dural sac and tissue closure Estimated blood loss (mL): 500 Procedure: 1. L5/S1 Interbody fusion with posterolateral fusion 2. Instrumentation L3-S1 3. Lumbopelvic instrumentation 4. Cage at L5/S1 5. L4/5 Laminectomy with partial facetectomies 6. L5/S1 Laminectomy with partial facetectomies 7. use of autograft from same incision 8. allograft 9. Bone marrow aspirate from right iliac crest 10. Use of computer navigation /stereotactic for spine Patient is brought to the operative suite. After undergoing anesthesia, the patient had neuro monitoring attached. Patient was then placed in the prone position on the Lloyd table. All areas of impingement were well-padded. Patient was then prepped and draped in the normal sterile fashion. Skin incision was then made over the L3-S1. Subperiosteal dissection was made out to the transverse processes of L3, L4 and L5 and the sacral ala was bilaterally. Next attention was brought to getting better aspirate. This was done using the saambaa bone marrow aspirate kit was used to aspirate bone marrow aspirate. This was done by using the sharp probe to open up the bone in the right iliac crest. Aspiration was performed and then the blunt probe was then used to dissect down to through the bone tunnel. An aspirating well drawn back a millimeter approximately 20 cc of bone marrow aspirate was used. Admixed with the allograft and autograft bone that will be used. Next attention was brought to placing the fiducials in the right iliac crest. This is done by placing 2 pins in the iliac crest. These 2 pins were later removed at the end of the case. The fiducial was attached to these 2 pins and the C-arm was brought in and spun around the patient and the information from the C-arm was then used later for using the computer navigated stereotactic spine screws. The technique for placing the pedicle screws was to use a drill followed by the gearshift probe linked to computer navigation. Followed by the ball probe to feel the superior inferior medial lateral mercado of the pedicles. Then placement of the screws using the computer navigation. Was done at each pedicle. Screws were placed at L 3 bilaterally and L 4 bilaterally and L5 bilaterally and S1 bilaterally. Next attention was brought to placing the iliac screws. The gearshift probe linked to navigation was placed in the sacrum crossed through the ala across the SI joint and into the ileum. This was all done under computer navigation. Pedicle probe was then used to ensure that the wall was not breached. A navigated tap was then used and then an 80 x 9.5 mm [place] screw was inserted in the sacral ala iliac fashion. This was the iliac screw. This was done both on the right left side. Next attention was brought to performing the laminectomy at L4-5. This was done by using a high-speed bur on the L4 lamina. Medial aspect of the facet joint at L4-5 was taken down bilaterally using high-speed bur. Kerrison rongeur was then used to finish off the remaining bone of the ligamentum flavum was taken down from L4 and L5 and then the L5 nerves were traced around the L5 pedicles bilaterally and the L4 nerve was traced out the L4-5 foramen bilaterally. Both were completely freed up. Next attention was brought to performing the laminectomy ofL5. This was done using the high-speed bur Kerrisons and curettes. Once the lamina was removed and then attention was brought to performing a partial facetectomy on the contralateral side. This was done again using the high-speed bur curettes and Kerrisons. The ligamentum flavum was taken down bilaterally from L5 to S1. Attention was then brought to the facet on the ipsilateral side. The facet was taken down. The S1 nerve was decompressed as it passed around the S1 pedicle. The laminectomy was done for purposes of decompressing the nerve as well as placement of the cage. The L5 nerve was identified as it traversed through the L5/S1 foramen. The thecal sac was identified and retracted. The L5/S1 disc base was identified. Using a knife the disc base was opened. And then sequential kaleigh were placed. The first shaver was a 6 and the last shaver was a 10. Using a pituitary and down going curette the endplates were scraped and disc material was removed from the space. Once adequate decompression of the disc base was felt to be had. Osteoamp sponge was packed into the anterior aspect of the disc base. Then a size 12 cage from [employer] was placed after packing osteoamp into the cage. While placing the cage the thecal sac and S1 nerve was protected. C arm was used to ensure that the cages placed in the appropriate position. Attention was then brought to attaching the rods to the screws placed in the L3 bilaterally L4 bilaterally, L5 bilaterally, and S1 bilaterally and attached to the iliac screws bilaterally. Caps were torqued into position. Locking the construct in place. Wound was copiously irrigated and then attention was brought to decorticating the facets and transverse processes laterally. Bone that was taken down from the lamina was used along with osteoamp fibers and sponges were packed into the lateral gutters along the facet joints. This was done bilaterally. Wound was then closed in a layered fashion starting with the thoracolumbar fascia. 0-vicryl was used the sub cutaneous tissue was closed with 2-0 vicryl and skin with 4-0 monocryl. Glue was then used to seal the skin and a steril dressing was applied. Patient was then placed in the supine position. The endotracheal tube was removed and patient was transferred to the PACU in stable condition.
[2022-01-15] MEDS: oxyCODONE-APAP 10-325 mg Tablet 1 TAB PO (11:55)
--- NOTE | 2022-01-15 11:55 | PC.NURSE ---
Pt given percocet for c/o pain. Pt stated he could not wait for the PO pill to kick in and needed something now for pain. Nurse to follow-up with anesthesia.
--- NOTE | 2022-01-15 12:05 | PC.NURSE ---
Pt c/o severe back pain 11/12. Dr Calvin ordered Dilaudid 0.3mg x 1 IVP and 5% albumin 250ml x 1 for soft BP 94/66. Pharm to dispense albumin to nurse.
[2022-01-15] MEDS: HYDROmorphone 1 mg/mL INJ 1 mL 0.3 MG IVP (12:12)
[2022-01-15] MEDS: albumin 12.5 GM/250 ML VIAL IV (12:12)
--- NOTE | 2022-01-15 12:15 | PM.PACU ---
PACU note Narrative: Patient recovering in phase II awaiting floor bed. In pain, soft BPs with SBP in 90s, MAPs 65-75 mmHg. Oriented to year, day, month, president. Albumin 5% ordered, along with narcotic. Pre-op CBC never completed, post op CBC ordered.
[2022-01-15 12:47] LABS: Basophils % 0.1 %; Eosinophils % 0.1 %; Hematocrit 30.9 % (42.0-52.0); Hemoglobin 10.5 g/dL (11.7-16.6); Lymphocytes # 0.8 10^3/uL (0.8-4.8); Lymphocytes % 7.1 %; Mean Corpuscular Hemoglobin 32.4 pg (28.0-34.0); Mean Corpuscular Volume 95.4 fl (80-94); Mean Platelet Volume 9.9 fL (7.4-10.4); Monocytes # 0.3 10^3/uL (0.2-0.9); Monocytes % 2.7 %; Neutrophils # 9.43 10^3/uL (1.8-7.7); Neutrophils % 89.2 %; Nucleated Red Blood Cells % 0 %; Platelet Count 148 10^3/cmm (130-400); Red Blood Count 3.24 10^6/uL (4.1-5.3); Red Cell Distribution Width 12.4 % (12.1-15.1); White Blood Count 10.6 10^3/uL (4.0-10.0)
--- NOTE | 2022-01-15 12:56 | PM.PACU ---
PACU note Narrative: Hgb 10.5, drain output 150 ml. Patient continues to have pain. Total EBL 700 ml, intraop crystalloid 1600 ml. Will give another 500 ml albumin for total of 750 ml in addition to acetaminophen and MgSO4 for additional multimodal pain medications.
[2022-01-15] MEDS: acetaminophen 1,000 MG/100 ML PIGGYBACK 400 MG IV (13:07)
[2022-01-15] MEDS: magnesium sulfate premix 2 GM/50 ML PIGGYBACK IV (13:10)
--- NOTE | 2022-01-15 13:19 | PC.NURSE ---
Addendum entered by Johana Chicas RN 01/15/22 13:31: Correction: 300 ml yellow out, not 600 ml. Original Note: 110 ml out of hemavac. Dressing C/D/I, no bleeding. Vitals discussed with Dr Calvin. BP 107/61 69 HR, 95% RA. Patient reports pain remaining 8/10. Dr Calvin ordered additional 5% albumin 250 ml x 2, IV Acetaminophen 1 mg x 1, and 2 gm Mag in 50 ml x 1. Education on meds provided to daughter and patient. Verbalized understanding. Lungs clear per auscultation. SCD's in place since entering extended care. 600 ml yellow urine out lemus. Pt denies nausea. Will monitor.
--- NOTE | 2022-01-15 13:51 | PC.NURSE ---
Pt reports pain 6/10 after IV tylenol. He is resting comfortably in bed with eyes closed. Report called to Lupe.
--- NOTE | 2022-01-15 14:16 | ANE.PACU2 ---
Inpatient post-anesthesia follow up: Airway intact: Yes Vital signs: Temperature 97.3 F Pulse Rate 71 Respiratory Rate 16 Blood Pressure 104/61 Pulse Oximetry 94 Oxygen Delivery Me thod Room Air Oxygen Flow Rate 6 Fraction of Inspir ed Oxygen Hydration adequate: Yes Nausea and vomiting: No Pain level: 6 Mental status: Baseline Additional Comments: BP improved, patient able to sleep at current level of pain control
--- NOTE | 2022-01-15 14:25 | PC.NURSE ---
Additional 50 ml from hemavac. Mag finished prior to transfer. Pt requesting another pain pill upon arriving to floor. Reported to nurse.
[2022-01-15] MEDS: ketorolac 30 mg/mL INJ IVP ×2 (14:38→23:07)
[2022-01-15] MEDS: ceFAZolin 2,000 MG in sodium chloride 0.9% (plus) 50 ML 100 MG IV ×2 (14:39→22:53)
[2022-01-15] MEDS: lactated ringers 1,000 ML 90 ML IV (14:39)
[2022-01-15] MEDS: cyclobenzaprine 10 mg Tablet PO ×2 (14:54→22:57)
[2022-01-15] MEDS: oxyCODONE 5 mg IR Tab/Cap PO ×2 (16:05→20:09)
[2022-01-15] MEDS: docusate sodium 100 mg Capsule PO (17:25)
[2022-01-15] MEDS: morphine 4 mg/mL SDV 1 mL IVP (20:56)
[2022-01-16] VITALS (16 sets, daily range): BP systolic 102–127; BP diastolic 61–74; PULSE 70–94; RESP 16–22; TEMP 36.3–37.4; O2SAT 92–98
--- NOTE | 2022-01-16 00:14 | PC.NURSE ---
Patient requesting to speak with physician about pain medications. Patient given PRN medications: Oxycodone IR 20mg at 1999, morphine 4mg IVP 2054, Toradol 30mg IVP at 2299, and Flexeril 10mg PO at 2299. At each pain follow up, patient reports no change and rates pain 7/10. At the 2129 pain follow up, patient offered additional pain medication, but patient refused stating none of that works . At 2244, patient called for RN, stating he wanted to speak with physician about pain medications. RN again offered available PRN pain medications: Toradol and Flexeril, which pt had previously refused. Patient did agree to try these medications first before RN to call physician. At pain follow up at 2339, patient continues to rate pain 7/10. Explained to patient that physician would be contacted per his request. Attempted to contact Dr. Doan, but physician was unavailable at 0015. Dr. Posada contacted as ortho workers compensation claims analyst. Reported to physician patient's request regarding pain medication and that all PRN medications given at intervals with patient reporting no relief. Dr. Posada did not make any changes to patient's current PRN pain relief medications and requested RN to instruct patient to report his medication issues with Dr. Doan during rounding. Will notify patient of result of physician call.
[2022-01-16] MEDS: ondansetron 2 mg/ML SDV 2 mL 4 MG IVP (00:32)
[2022-01-16] MEDS: oxyCODONE 5 mg IR Tab/Cap PO ×4 (01:02→20:12)
[2022-01-16] MEDS: lactated ringers 1,000 ML 90 ML IV ×2 (01:55→14:42)
--- NOTE | 2022-01-16 02:09 | PC.NURSE ---
Patient continues to report pain unrelieved by PRN medications. He states, I want to see a doctor or something bad is gonna happen to this place . RN called Bud MAGAÑA to notify that patient continues to have pain despite all the PRN pain medications given. New orders received for one time dose Ativan for anxiety and Dilaudid for severe pain.
[2022-01-16] MEDS: LORazepam 2 mg/mL INJ 1 mL 1 MG IVP (02:24)
[2022-01-16] MEDS: HYDROmorphone 1 mg/mL INJ 1 mL IVP ×4 (02:28→20:48)
[2022-01-16] MEDS: ceFAZolin 2,000 MG in sodium chloride 0.9% (plus) 50 ML 100 MG IV (06:21)
--- NOTE | 2022-01-16 07:33 | PM.PN ---
Subjective Subjective: POD 1 Patient comfortable this morning had a difficult evening with poor pain control. Reports mild back pain too early to tell if his legs feel any different. Patient has not been up walking. Denies any chest pain, shortness of breath or headaches. Vitals/I&O/Wt Last Vital Signs Temp 97.3 F L 01/16/22 06:00 Pulse 79 01/16/22 06:00 Resp 20 H 01/16/22 06:00 BP 119/71 01/16/22 06:00 Pulse Ox 98 01/16/22 06:00 O2 Del Method 01/15/22 18:05 O2 Flow Rate 6 01/15/22 11:00 01/15/22 01/16/22 01/16/22 22:59 06:59 14:59 Intake Total 170 / 2620 1170 / 3790 50 / 50 Output Total 100 / 1610 2800 / 4410 Balance 70 / 1010 -1630 / -620 50 / 50 Weight last 48 hrs Weight 185 lb 9.6 oz Physical Exam Narrative: Patient presents alert and oriented x3 with a good general appearance normal mood and affect. Normal coordination normal stability. Mild tenderness around the incisional site with the incision appearing clean and dry. Hemovac intact. No signs of erythema or drainage. No signs of infection. Patient denies any fevers or chills. 5/5 motor strength both lower extremities with negative straight leg raise bilaterally. Calves are supple no medial thigh tenderness. Pulses are 2+ at the dorsalis pedis and posterior tibial region. Good capillary refill throughout normal sensation light touch both lower extremities. Urinary Catheter Management: Hooks: Cath Placed During This Visit: yes Reason for Continuing Indwelling Catheter: Perioperative Use in Selected Surgeries Urinary Catheter Date of Insertion: 01/15/22 Urinary Catheter Time of Insertion: 07:30 Data : 01/15/22 12:35 A&P Assessment and plan (1) Status post lumbar spinal fusion: We will discontinue Hooks catheter. We will have physical therapy work with mobilizing. Patient lives alone and therefore we will work with his stability today discontinue Hemovac drain tomorrow. We will work to have better pain control through the evening. Encourage incentive spirometry for pulmonary toilet. Status: Acute Attestations Medical Necessity Statement*: Poor pain control Coding Level of Care Code Acute Real Estate Legal Secretary for Chg Fwd Diagnoses Status post lumbar spinal fusion Z98.1
[2022-01-16] MEDS: multivitamin therapeutic Tablet 1 TAB PO (08:34)
[2022-01-16] MEDS: docusate sodium 100 mg Capsule PO ×2 (08:34→17:26)
[2022-01-16] MEDS: amlodipine 5 mg Tablet PO (09:15)
[2022-01-16] MEDS: ketorolac 30 mg/mL INJ IVP ×2 (11:00→21:37)
[2022-01-16] MEDS: cyclobenzaprine 10 mg Tablet PO ×2 (11:00→21:37)
[2022-01-16] MEDS: oxyCODONE 10 mg ER (12 HR) Tablet PO (17:26)
[2022-01-17] VITALS (9 sets, daily range): BP systolic 111–130; BP diastolic 68–76; PULSE 72–79; RESP 16–18; TEMP 36.9–37.1; O2SAT 90–93
[2022-01-17] MEDS: oxyCODONE 5 mg IR Tab/Cap PO ×2 (00:23→05:06)
[2022-01-17] MEDS: lactated ringers 1,000 ML 90 ML IV (01:51)
[2022-01-17] MEDS: HYDROmorphone 1 mg/mL INJ 1 mL IVP ×2 (01:57→06:05)
--- NOTE | 2022-01-17 06:42 | PM.PN ---
Subjective Subjective: POD 2 Patient reports mild back pain states his leg pain has resolved feels much better. He was mobilizing in the halls. He is ready for discharge home. He denies any chest pain, shortness of breath, headaches. Vitals/I&O/Wt Last Vital Signs Temp 98.7 F 01/17/22 05:23 Pulse 73 01/17/22 05:23 Resp 18 01/17/22 06:05 BP 130/76 01/17/22 05:23 Pulse Ox 91 01/17/22 05:23 O2 Del Method 01/17/22 05:23 O2 Flow Rate 6 01/16/22 08:00 01/16/22 01/16/22 01/17/22 14:59 22:59 06:59 Intake Total 1200 / 1200 1000 / 2200 Output Total 415 / 415 475 / 890 250 / 1140 Balance 785 / 785 -475 / 310 750 / 1060 Weight last 48 hrs Weight 185 lb 9.6 oz Physical Exam Narrative: Patient presents alert and oriented x3 with a good general appearance normal mood and affect. Normal coordination normal stability. Mild tenderness around the incisional site with the incision appear to be in and dry with Hemovac intact.. No signs of erythema or drainage. No signs of infection. Patient denies any fevers or chills. 5/5 motor strength both lower extremities with negative straight leg raise bilaterally. Calves are supple no medial thigh tenderness. Pulses are 2+ at the dorsalis pedis and posterior tibial region. Good capillary refill throughout normal sensation light touch both lower extremities. Urinary Catheter Management: Hooks: Cath Placed During This Visit: yes, but has since been removed by the nurse Reason for Continuing Indwelling Catheter: Decision to DC Catheter Urinary Catheter Date of Insertion: 01/15/22 Urinary Catheter Time of Insertion: 07:30 Date Urinary Catheter Removed: 01/16/22 Time Urinary Catheter Discontinued: 10:41 Data : 01/15/22 12:35 A&P Assessment and plan (1) Status post lumbar spinal fusion: We will discontinue the Hemovac drain. Have physical therapy work with him prior to his discharge. We will discharge him home with his Oxy IR, Flexeril. We will have him follow-up in the office in 1 week's time. No bending lifting or twisting keep the incision clean and dry. Continue walking program as well as home with incentive spirometry for pulmonary toilet. Status: Acute Attestations Medical Necessity Statement*: DC home today Coding Level of Care Code Acute [employer] for Chg Fwd Diagnoses Status post lumbar spinal fusion Z98.1
[2022-01-17] MEDS: amlodipine 5 mg Tablet PO (09:04)
[2022-01-17] MEDS: oxyCODONE 10 mg ER (12 HR) Tablet PO (09:04)
[2022-01-17] MEDS: docusate sodium 100 mg Capsule PO (09:04)
[2022-01-17] MEDS: multivitamin therapeutic Tablet 1 TAB PO (09:04)
== END 2022-01-17 11:08 | disposition home or self-care (01) | DRG 455 ==
LOC: MEDSURG 13:45
PROVIDERS: Anesthesiology; Admitting Provider Orthopaedic Surgery; PCP Emergency Medicine; Visit Provider Orthopaedic Surgery
PROC: 0SG30AJ Fusion of Lumbosacral Joint with Interbody Fusion Device, Posterior Approach, Anterior Column, Open Approach (ICD-10-PCS; CPT 22612; principal; 2022-01-15 07:00)
DX: M43.16 Spondylolisthesis, lumbar region (principal); M47.26 Other spondylosis with radiculopathy, lumbar region; M19.90 Unspecified osteoarthritis, unspecified site; Z87.891 Personal history of nicotine dependence
CPT/HCPCS: 36415; 51702; 72100; 76000; 85025; 86850; 86900; 97116; 97161; 97530; C1713; J0330; J1100; J1170; J1644; J1885; J2060; J2250; J2270; J2370; J2405; J2704; J3010; J3370; J3475; J3490; J7030; P9041

== ENCOUNTER → 2022-02-27 14:27 | Outpatient (BNVA) | payer OTHER, SELFPAY | PROVIDERS: PCP Emergency Medicine; Visit Provider Orthopaedic Surgery | DX: Z47.89 Encounter for other orthopedic aftercare (principal); Z98.1 Arthrodesis status | CPT/HCPCS: 72100 ==

== ENCOUNTER → 2022-04-17 08:34 | Outpatient (BNVA) | payer OTHER, SELFPAY | PROVIDERS: PCP Emergency Medicine; Visit Provider Physician Assistant | DX: Z98.1 Arthrodesis status (principal) | CPT/HCPCS: 72100 ==

== ENCOUNTER → 2022-07-05 10:03 | Outpatient (BNVA) | payer OTHER, SELFPAY | PROVIDERS: PCP Emergency Medicine; Visit Provider Physician Assistant | DX: Z98.1 Arthrodesis status (principal) | CPT/HCPCS: 72100 ==

== ENCOUNTER → 2022-07-26 14:35 | Outpatient (BNVA) | payer OTHER, SELFPAY | PROVIDERS: PCP Emergency Medicine; Visit Provider Orthopaedic Surgery | DX: M54.32 Sciatica, left side (principal); M54.31 Sciatica, right side; Z98.1 Arthrodesis status | CPT/HCPCS: 72070; 72100 ==

== ENCOUNTER 2022-08-07 06:00 | Outpatient (RCR) | payer OTHER, SELFPAY | END 2022-09-02 23:59 | disposition home or self-care (01) | LOC: WPT 06:00 | PROVIDERS: Visit Provider Orthopaedic Surgery | DX: M48.061 Spinal stenosis, lumbar region without neurogenic claudication (principal) | CPT/HCPCS: 97110; 97112; 97163; 97530 ==

== ENCOUNTER 2022-09-03 06:00 | Outpatient (RCR) | payer OTHER, SELFPAY | END 2022-10-03 23:59 | disposition home or self-care (01) | LOC: WPT 06:00 | PROVIDERS: Visit Provider Orthopaedic Surgery | DX: M48.061 Spinal stenosis, lumbar region without neurogenic claudication (principal) | CPT/HCPCS: 97110; 97112; 97530 ==